=== PATIENT | female | born 1980 | race Caucasian/White ===

== ENCOUNTER 2016-02-18 13:15 | Emergency (ER) | payer OTHER ==
[2016-02-18 13:25] VITALS: BP 157/95; PULSE 87; TEMP 98.3; BMI 41.8
[2016-02-18] MEDS ORDERED: ALBUTEROL SO4 2.5/IPRATROPIUM 0.5 INH SOL 3 ML VIAL.NEB. NEB ONE ×2 (15:36→15:43)
--- NOTE | 2016-02-18 15:40 | PDOC ---
History of Present Illness - General Chief Complaint: Ear Problem Stated Complaint: LT EAR PAIN, COUGHING History Source: Patient Exam Limitations: No Limitations - History of Present Illness Initial Comments: 02/18/16 15:37 35 yr female no past medical history with cough nasal congestion, left ear pain for 4 days. no fever no sore throat, no abd pain or rash Severity: mild Associated Symptoms: reports: cough Past History - Past Medical History Allergies/Adverse Reactions: Allergies Allergy/AdvReac Type Severity Reaction Status Date / Time No Known Allergies Allergy Verified 02/18/16 13:25 Home Medications: Ambulatory Orders Albuterol Sulfate Inhaler - [Ventolin HFA Inhaler -] 2 inh PO Q4H #1 inh Prednisone [Deltasone] 40 mg PO DAILY #10 tablet 08/11/15 Albuterol Sulfate Inhaler - [Ventolin HFA Inhaler -] 1 - 2 inh PO Q4H #1 inhaler 02/18/16 Fluticasone Prop 0.05% Nasal [Flonase -] 1 - 2 spray NS DAILY #1 spray.pump 04/04 Other medical history: none relevant - Psycho/Social/Smoking Cessation Hx Suicidal Ideation: No Smoking History: Current every day smoker Number of Cigarettes Smoked Daily: 7 Information on smoking cessation initiated: No Review of Systems - Review of Systems Able to Perform ROS?: Yes Is the patient limited German proficient: No Constitutional: Yes: See HPI HEENTM: Yes: See HPI Respiratory: Yes: See HPI Cardiac (ROS): No: See HPI ABD/GI: No: See HPI *Physical Exam - Vital Signs Last Vital Signs Temp Pulse Resp BP Pulse Ox 98.3 F 87 18 157/95 98 02/18/16 13:22 02/18/16 13:22 02/18/16 13:22 02/18/16 13:22 02/18/16 13:22 - Physical Exam General Appearance: Yes: Nourished, Appropriately Dressed HEENT: positive: EOMI, ZENON, Other (narrowing of canal left ear ). negative: Pharyngeal Erythema (post nasal drip ) Neck: positive: Supple. negative: Tender Respiratory/Chest: positive: Rhonchi (scattered). negative: Chest Tender Cardiovascular: positive: Regular Rhythm, Regular Rate Gastrointestinal/Abdominal: positive: Normal Bowel Sounds, Soft Extremity: positive: Normal Capillary Refill, Normal Inspection, Normal Range of Motion Integumentary: positive: Normal Color, Dry, Warm Neurologic: positive: Fully Oriented, Alert, Normal Mood/Affect, Normal Response , Motor Strength /5 Medical Decision Making - Medical Decision Making 02/18/16 15:38 cc: cough, nasal congestion, left ear pain will give duoneb x1 for rhonchi pt is a smoker, will dc with inhaler, supportive care at home follow with ENT if symptoms worsen 02/18/16 15:48 02/18/16 15:52 *DC/Admit/Observation/Transfer Diagnosis at time of Disposition: Rhinosinusitis, Cough - Discharge Dispostion Disposition: HOME - Prescriptions Prescriptions: Fluticasone Prop 0.05% Nasal [Flonase -] 1 - 2 spray NS DAILY #1 spray.pump Albuterol Sulfate Inhaler - [Ventolin HFA Inhaler -] 1 - 2 inh PO Q4H #1 inhaler - Referrals Referrals: Annia Cordon [Primary Care Provider] - Miguel Westfall MD [Staff Physician] - - Patient Instructions Additional Instructions: use flonase nasal spray as directed for congestion, sinus pressure and cough use your inhaler as directed drink pleanty of fluids to stay well hydrated follow with your doctor or with ENT if symptoms continue return to ER for any worsening symptoms
== END 2016-02-18 15:56 | disposition home or self-care (01) ==
LOC: JERFT 13:15
PROC: 3E0F7GC Introduction of Other Therapeutic Substance into Respiratory Tract, Via Natural or Artificial Opening (ICD-10-PCS; principal; 2016-02-18)
DX: J01.80 Other acute sinusitis (principal)
CPT/HCPCS: 94640; 99281-25

== ENCOUNTER 2016-04-06 08:36 | Emergency (ER) | payer OTHER ==
[2016-04-06 08:42] VITALS: TEMP 97.8; BMI 41.1
--- NOTE | 2016-04-06 09:13 | PDOC ---
History of Present Illness - General History Source: Patient Exam Limitations: No Limitations - History of Present Illness Initial Comments: 04/06/16 09:31 The patient is a 35 year old female with no past medical history who presents to the ED with chest pain. Patient reports that the pain is localized to the left upper chest and is pressure like in nature and is reproducible. Patient notes that she was woken up from her sleep at 4 am due to the pain. She reports eating steak, rice and broccoli at 10 pm last night. She denies any acid taste in her mouth or heartburn sensation. She notes that her LMP was last week. She denies fever, chills, nausea, vomiting, diarrhea, constipation, headache, dizziness, SOB. She denies dysuria, frequency, hesitancy or hematuria. She denies any strenuous activity. She denies any recent travel. Allergies: none FMH: diabetes <Shanel Preciado - Last Filed: 04/06/16 11:18> <Ahmet Bishop - Last Filed: 04/06/16 11:34> - General Chief Complaint: Chest Pain Stated Complaint: CHEST PAIN Time Seen by Provider: 04/06/16 09:12 Past History <Shanel Preciado - Last Filed: 04/06/16 11:18> - Past Medical History Other medical history: DENIES - Psycho/Social/Smoking Cessation Hx Suicidal Ideation: No Smoking History: Current every day smoker Number of Cigarettes Smoked Daily: 7 Information on smoking cessation initiated: No <Ahmet Bishop - Last Filed: 04/06/16 11:34> - Past Medical History Allergies/Adverse Reactions: Allergies Allergy/AdvReac Type Severity Reaction Status Date / Time No Known Allergies Allergy Verified 04/06/16 08:42 Home Medications: Ambulatory Orders Ibuprofen 800 mg PO TID #30 tablet 04/06/16 Ondansetron [Ondansetron Odt] 8 mg PO TID #30 tab.rapdis 04/06/16 Review of Systems - Review of Systems Able to Perform ROS?: Yes Comments:: 04/06/16 09:31 GENERAL/CONSTITUTIONAL: No fever or chills. No weakness. HEAD, EYES, EARS, NOSE AND THROAT: No change in vision. No ear pain or discharge. No sore throat. CARDIOVASCULAR: +chest pain. No shortness of breath. RESPIRATORY: No cough, wheezing, or hemoptysis. GASTROINTESTINAL: No nausea, vomiting, diarrhea or constipation. GENITOURINARY: No dysuria, frequency, or change in urination. MUSCULOSKELETAL: No joint or muscle swelling or pain. No neck or back pain. SKIN: No rash NEUROLOGIC: No headache, vertigo, loss of consciousness, or change in strength/ sensation. ENDOCRINE: No increased thirst. No abnormal weight change. HEMATOLOGIC/LYMPHATIC: No anemia, easy bleeding, or history of blood clots. ALLERGIC/IMMUNOLOGIC: No hives or skin allergy. <Shanel Preciado - Last Filed: 04/06/16 11:18> *Physical Exam - Vital Signs Last Vital Signs Temp Pulse Resp BP Pulse Ox 97.8 F 67 18 136/98 98 04/06/16 08:39 04/06/16 08:39 04/06/16 08:39 04/06/16 08:39 04/06/16 08:39 - Physical Exam Comments: 04/06/16 09:32 GENERAL: Awake, alert, and fully oriented, in no acute distress HEAD: No signs of trauma EYES: PERRLA, EOMI, sclera anicteric, conjunctiva clear ENT: Auricles normal inspection, hearing grossly normal, nares patent, oropharynx clear without exudates. Moist mucosa NECK: Normal ROM, supple, no lymphadenopathy, JVD, or masses LUNGS: Breath sounds equal, clear to auscultation bilaterally. No wheezes, and no crackles HEART: Regular rate and rhythm, normal S1 and S2, no murmurs, rubs or gallops CHEST: +Left upper intercostal 3rd rib tenderness. ABDOMEN: +Obese. Soft, nontender, normoactive bowel sounds. No guarding, no rebound. No masses EXTREMITIES: Normal range of motion, no edema. No clubbing or cyanosis. No cords, erythema, or tenderness NEUROLOGICAL: Cranial nerves II through XII grossly intact. Normal speech, normal gait SKIN: Warm, Dry, normal turgor, no rashes or lesions noted. <Shanel Preciado - Last Filed: 04/06/16 11:18> - Vital Signs Last Vital Signs Temp Pulse Resp BP Pulse Ox 97.8 F 67 18 136/98 98 04/06/16 08:39 04/06/16 08:39 04/06/16 08:39 04/06/16 08:39 04/06/16 08:39 <Ahmet Bishop - Last Filed: 04/06/16 11:34> Heart Score/ECG Review #1 04/06/16 09:[address] Bishop Impression: Normal sinus rhythm Normal rate Normal axis Normal EKG Vent rate 65 bpm <Shanel Preciado - Last Filed: 04/06/16 11:18> ED Treatment Course - LABORATORY CBC & Chemistry Diagram: 04/06/16 09:27 04/06/16 09:27 <Shanel Preciado - Last Filed: 04/06/16 11:18> - LABORATORY CBC & Chemistry Diagram: 04/06/16 09:27 04/06/16 09:27 <Ahmet Bishop - Last Filed: 04/06/16 11:34> Medical Decision Making - Medical Decision Making 04/06/16 09:32 35 year old female with no past medical history who presents to the ED with chest pain since 4 am. Will order CXR, labs and UA. Will provide supportive care in the meantime and reassess when results are back. 04/06/16 10:54 Patient notes that Toradol alleviated her pain and she "feels much better". D- dimer is negative. Awaiting on results of CXR. <Shanel Preciado - Last Filed: 04/06/16 11:18> - Medical Decision Making 04/06/16 11:24 Pain is definitely reproducible and, toradol relieved her pain. Labs all negative, Ekg and Cxr both normal. Will DC home and have follow up with pmd. <Ahmet Bishop - Last Filed: 04/06/16 11:34> *DC/Admit/Observation/Transfer - Attestations Scribe Attestion: 04/06/16 09:35 Documentation prepared by KINGA Bowie, acting as medical consultant for Ahmet Bishop MD/. <Shanel Preciado - Last Filed: 04/06/16 11:18> - Discharge Dispostion Admit: No - Attestations Physician Attestion: 04/06/16 09:13 I, Dr. Ahmet Bishop, attest that this document has been prepared under my direction and personally reviewed by me in its entirety. I further attest, that it accurately reflects all work, treatment, procedures and medical decision -making performed by me. <Ahmet Bishop - Last Filed: 04/06/16 11:34> Diagnosis at time of Disposition: Costochondral chest pain - Discharge Dispostion Disposition: HOME Condition at time of disposition: Good - Prescriptions Prescriptions: Ibuprofen 800 mg PO TID #30 tablet Ondansetron [Ondansetron Odt] 8 mg PO TID #30 tab.rapdis - Referrals Referrals: Annia Cordon [Primary Care Provider] - - Patient Instructions Printed Discharge Instructions: DI for Costochondritis Additional Instructions: Soila- All of your tests were normal and the toradol helped your pain. I wrote prescriptions for motrin and zofran for you to have at home. Follow up with your regular doctor later this week. Return to us if any problems at all. Be Well- Dr. Ahmet Bishop
[2016-04-06] MEDS ORDERED: KETOROLAC TROMETHAMINE 30 MG/1 ML VIAL IVPUSH ONE (09:22)
[2016-04-06] MEDS ORDERED: ONDANSETRON 4 MG/2 ML VIAL IVPUSH ONE (09:22)
[2016-04-06] MEDS ORDERED: ONDANSETRON 4 MG/2 ML VIAL ONE (09:28)
[2016-04-06] MEDS ORDERED: KETOROLAC TROMETHAMINE 30 MG/1 ML VIAL ONE (09:28)
[2016-04-06 09:38] LABS: BASOPHIL 0.9 % (0-2.0); EOSINOPHIL 2.4 % (0-4.5); MCH 29.9 pg (25.7-33.7); MCHC 33.9 g/dl (32.0-36.0); MEAN CELL VOLUME 88.2 fl (80-96); MEAN PLT VOLUME 7.7 fl (7.5-11.1); NEUTROPHILS 67.9 % (42.8-82.8); PLATELET COUNT 252 K/MM3 (134-434); RDW 14.3 % (11.6-15.6); WHITE BLOOD COUNT 8.6 K/mm3 (4.0-10.0)
[2016-04-06 09:54] LABS: INR 1.05 (0.82-1.09)
[2016-04-06 09:55] LABS: ALBUMIN 3.5 g/dl (3.4-5.0); ANION GAP 9 (8-16); BILIRUBIN,TOTAL 0.2 mg/dL (0.2-1.0); CALCIUM 8.1 mg/dL (8.5-10.1); CO2 25 mmol/L (21-32); GLUCOSE,RANDOM 111 mg/dL (74-106); SGOT/AST 12 U/L (15-37); SGPT/ALT 30 U/L (12-78); TOT PROT 6.5 g/dl (6.4-8.2)
[2016-04-06 09:57] LABS: ALK PHOS 73 U/L (45-117); TROPONIN I < 0.02 ng/ml (0.00-0.05)
[2016-04-06 10:23] LABS: D-DIMER < 200 ng/ml (<200-235)
[2016-04-06 10:44] VITALS: BP 115/64; PULSE 62
--- NOTE | 2016-04-07 00:40 | EKG ---
Test Reason : Blood Pressure : / mmHG Vent. Rate : 065 BPM Atrial Rate : 065 BPM P-R Int : 136 ms QRS Dur : 108 ms QT Int : 436 ms P-R-T Axes : 017 -10 038 degrees QTc Int : 453 ms NORMAL SINUS RHYTHM WITH SINUS ARRHYTHMIA NORMAL ECG NO PREVIOUS ECGS AVAILABLE Confirmed by JOHN PAUL ALCANTARA MD ([id number]) on 04/07/2016 12:40:02 AM Referred By: Confirmed By:JOHN PAUL ALCANTARA MD
== END 2016-04-06 11:47 | disposition home or self-care (01) ==
LOC: JER 08:36
PROC: 3E0333Z Introduction of Anti-inflammatory into Peripheral Vein, Percutaneous Approach (ICD-10-PCS; principal; 2016-04-06)
PROC: 3E033GC Introduction of Other Therapeutic Substance into Peripheral Vein, Percutaneous Approach (ICD-10-PCS; 2016-04-06)
DX: M94.0 Chondrocostal junction syndrome [Tietze] (principal)
CPT/HCPCS: 36415; 71020-TC; 80053; 82550; 84484; 84703; 85025; 85379; 85610; 93005; 93010; 96374; 96375; 99285-25

== ENCOUNTER → 2016-07-02 | Emergency (ER) | payer OTHER ==
[~2016-07-02] MED LIST: KETOROLAC TROMETHAMINE 30 MG/1 ML VIAL IVPUSH ONE; KETOROLAC TROMETHAMINE 30 MG/1 ML VIAL ONE; METOCLOPRAMIDE HCL INJECTION 10 MG/2 ML VIAL IVPUSH ONE; METOCLOPRAMIDE HCL INJECTION 10 MG/2 ML VIAL ONE; SODIUM CHLORIDE 0.9% 1000 ML INFUS.BAG IV ONE
[2016-07-03 00:29] VITALS: BMI 38.7
--- NOTE | 2016-07-03 04:00 | PDOC ---
History of Present Illness - General Chief Complaint: Headache Stated Complaint: HEADACHE Time Seen by Provider: 07/03/16 01:26 - History of Present Illness Initial Comments: 07/03/16 03:53 CHIEF COMPLAINT: headache HISTORY OF PRESENT ILLNESS: 35 yo F with hx of migraines presents to ED with headache x 5 days. Patient reports that she was given a medicine by her doctor for her headaches but is unsure what medication it was and it did not help today. She describes the pain as a "pressure" and denies any photophobia or nausea/vomiting. She denies any change in vision. No recent travel or sick contacts. PAST MEDICAL HISTORY: Denies past medical history FAMILY HISTORY: Denies SOCIAL HISTORY: Denies tobacco, alcohol, illicit drug use. SURGICAL HISTORY: Denies ALLERGIES: No known drug allergies REVIEW OF SYSTEMS General/Constitutional: Denies fever or chills. HEENT: Denies change in vision. Denies ear pain or discharge. Denies sore throat. Cardiovascular: Denies chest pain or shortness of breath. Respiratory: Denies cough, wheezing, or hemoptysis. Gastrointestinal: Denies nausea, vomiting, diarrhea or constipation. Denies rectal bleeding. Genitourinary: Denies dysuria, frequency, or change in urination. Musculoskeletal: Denies joint or muscle swelling or pain. Denies neck or back pain. Skin and breasts: Denies rash or easy bruising. Neurologic: Headache x 5 days. Denies vertigo, loss of consciousness, or loss of sensation. PHYSICAL EXAM General Appearance: Well-appearing, appropriately dressed. No apparent distress. HEENT: EOMI, PERRLA, normal ENT inspection, normal voice, TMs normal, pharynx normal. No conjunctival pallor. No photophobia, scleral icterus. Neck: Supple. Trachea midline. No tenderness, rigidity, carotid bruit, stridor , lymphadenopathy, or thyromegaly. Respiratory/Chest: Lungs CTAB. Cardiovascular: RRR. S1, S2. Gastrointestinal/Abdominal: Normal bowel sounds. Abdomen soft, non-distended. No tenderness or rebound tenderness. No organomegaly, pulsatile mass, guarding , hernia, hepatomegaly, splenomegaly. Musculoskeletal/Extremities: Normal inspection. FROM of all extremities, normal capillary refill. Pelvis Stable. No CVA tenderness. No tenderness to extremities, pedal edema, swelling, erythema or deformity. Integumentary: Appropriate color, dry, warm. No cyanosis, erythema, jaundice or rash Neurologic: associate doctor II-XII intact. Fully oriented, alert. Appropriate mood/affect. Motor strength 5/5. No appreciable EOM palsy, facial droop or sensory deficit. Past History - Past Medical History Allergies/Adverse Reactions: Allergies Allergy/AdvReac Type Severity Reaction Status Date / Time No Known Allergies Allergy Verified 04/06/16 08:42 Home Medications: Ambulatory Orders Ibuprofen 800 mg PO TID #30 tablet 04/06/16 Ondansetron [Ondansetron Odt] 8 mg PO TID #30 tab.rapdis 04/06/16 Acetaminophen/Caffeine/Butalb [Fioricet -] 1 tab PO Q6H PRN #12 tablet MDD 4 - Psycho/Social/Smoking Cessation Hx Suicidal Ideation: No Smoking History: Never smoked Have you smoked in the past 12 months: No Number of Cigarettes Smoked Daily: 7 Information on smoking cessation initiated: No Hx Alcohol Use: No Drug/Substance Use Hx: No *Physical Exam - Vital Signs Last Vital Signs Temp Pulse Resp BP Pulse Ox 97.5 F L 88 14 116/73 98 07/03/16 00:27 07/03/16 00:27 07/03/16 00:27 07/03/16 00:27 07/03/16 00:27 ED Treatment Course - ADDITIONAL ORDERS Additional order review: Laboratory Results 07/03/16 01:53 Urine HCG, Qual Negative - Medications Given in the ED: ED Medications Discontinued Medications Generic Name Dose Route Start Last Admin Trade Name Freq PRN Reason Stop Dose Admin Diphenhydramine HCl 25 mg 07/03/16 01:51 07/03/16 02:17 Benadryl Injection - IVPUSH 07/03/16 01:52 25 mg ONCE ONE Administration Ketorolac Tromethamine 30 mg 07/03/16 01:51 07/03/16 02:46 Toradol Injection - IVPUSH 07/03/16 01:52 30 mg ONCE ONE Administration Metoclopramide HCl 10 mg 07/03/16 01:51 07/03/16 02:17 Reglan Injection - IVPUSH 07/03/16 01:52 10 mg ONCE ONE Administration Sodium Chloride 1,000 ml 07/03/16 01:51 07/03/16 02:17 Normal Saline - IV 07/03/16 01:52 1,000 ml ONCE ONE Administration Medical Decision Making - Medical Decision Making 07/03/16 03:56 35 yo F with hx of migraines presents to ED with headache x 5 days. Exam unremarkable, patient neurologically intact. -IVF, Toradol, Reglan, Benadryl. Patient reassessed; reports she is feeling much better at this time and states she is ready to go home. Fioricet rx sent to pharm. Advised patient to take medication as prescribed f/u with neurology this week. Patient verbalized understanding and agrees to plan. *DC/Admit/Observation/Transfer Diagnosis at time of Disposition: Headache Qualifiers: Headache type: tension-type Headache chronicity pattern: acute headache Intractability: not intractable Qualified Code(s): G44.209 - Tension-type headache, unspecified, not intractable - Discharge Dispostion Disposition: HOME Condition at time of disposition: Improved Admit: No - Prescriptions Prescriptions: Acetaminophen/Caffeine/Butalb [Fioricet -] 1 tab PO Q6H PRN #12 tablet MDD 4 PRN Reason: Headache - Referrals Referrals: Annia Cordon [Primary Care Provider] - Cesar Son MD [Staff Physician] - - Patient Instructions Printed Discharge Instructions: DI for Headache Additional Instructions: Please take medication as prescribed and follow up with neurology within the next 2-3 days for further evaluation of your headaches. If you experience any sudden, "thunderclap" headache, change in vision, difficulty speaking, swallowing, or walking, or any new or worsening symptoms, please return to the ER.
[2016-07-03 04:32] VITALS: BP 118/77; PULSE 82; TEMP 97.9
== END | disposition home or self-care (01) ==
LOC: JER 23:49
PROC: 3E0333Z Introduction of Anti-inflammatory into Peripheral Vein, Percutaneous Approach (ICD-10-PCS; principal; 2016-07-02)
PROC: 3E033GC Introduction of Other Therapeutic Substance into Peripheral Vein, Percutaneous Approach (ICD-10-PCS; 2016-07-02)
DX: G44.209 Tension-type headache, unspecified, not intractable (principal); Z87.898 Personal history of other specified conditions
CPT/HCPCS: 84703; 99282-25

== ENCOUNTER 2016-08-26 20:52 | Emergency (ER) | payer OTHER ==
[2016-08-26 21:27] VITALS: BP 134/68; PULSE 76; TEMP 97.7; BMI 39.9
[2016-08-26 21:54] LABS: URINE APPEARANCE CLOUDY; URINE BILIRUBIN NEGATIVE (NEGATIVE); URINE COLOR YELLOW; URINE GLUCOSE (UA) 3+ (NEGATIVE); URINE KETONE NEGATIVE (NEGATIVE); URINE NITRITE NEGATIVE (NEGATIVE); URINE UROBILINOGEN NEGATIVE E.U./dl (0.2-1.0)
[2016-08-26 21:55] LABS: URINE BLOOD 2+ (NEGATIVE); URINE LEUK ESTERASE 3+ (NEGATIVE); URINE PROTEIN 1+ (NEGATIVE)
[2016-08-26 21:59] LABS: URINE BACTERIA RARE /hpf (NONE SEEN); URINE MUCUS RARE; URINE RBC 131 /hpf (0-3); URINE WBC 255 /hpf (3-5)
[2016-08-26] MEDS ORDERED: NITROFURANTOIN MACROCRYSTAL 50 MG CAPSULE (FP) ONE (22:15)
[2016-08-26] MEDS ORDERED: NITROFURANTOIN MACROCRYSTAL 50 MG CAPSULE (FP) PO SCH (22:15)
--- NOTE | 2016-08-26 22:18 | PDOC ---
History of Present Illness - General Chief Complaint: Urinary Problem Stated Complaint: POSSIBLE UTI Time Seen by Provider: 08/26/16 22:04 History Source: Patient Exam Limitations: No Limitations - History of Present Illness Travel History: No Initial Comments: 08/26/16 22:16 35-year-old female with urinary frequency suprapubic pressure, dysuria for the past few days without fever, chills, radiation of pain, back pain, vaginal discharge. Patient also denies irregular menses. Timing/Duration: reports: intermittent Quality: reports: cramping, sharpness Abdominal Pain Onset Location: reports: suprapubic Pain Radiation: reports: no radiation Aggravating Factors: improves with: Voiding Alleviating Factors: improves with: None Past History - Past Medical History Allergies/Adverse Reactions: Allergies Allergy/AdvReac Type Severity Reaction Status Date / Time No Known Allergies Allergy Verified 04/06/16 08:42 Home Medications: Ambulatory Orders Ibuprofen 800 mg PO TID #30 tablet 04/06/16 Ondansetron [Ondansetron Odt] 8 mg PO TID #30 tab.rapdis 04/06/16 Acetaminophen/Caffeine/Butalb [Fioricet -] 1 tab PO Q6H PRN #12 tablet MDD 4 Nitrofurantoin Monohyd/M-Cryst [Macrobid -] 100 mg PO BID #13 capsule 08/26/16 - Psycho/Social/Smoking Cessation Hx Anxiety: No Suicidal Ideation: No Smoking History: Never smoked Have you smoked in the past 12 months: No Number of Cigarettes Smoked Daily: 7 Information on smoking cessation initiated: No Hx Alcohol Use: No Drug/Substance Use Hx: No Substance Use Type: None Patient Lives Alone: No Review of Systems - Review of Systems Able to Perform ROS?: Yes Constitutional: No: Symptoms Reported HEENTM: No: Symptoms Reported ABD/GI: Yes: Nausea, Abdominal cramping : Yes: Symptoms Reported, Burning, Dysuria, Frequency. No: Flank Pain, Hematuria Musculoskeletal: No: Symptoms Reported Integumentary: No: Symptoms Reported Neurological: No: Symptoms reported *Physical Exam - Vital Signs Last Vital Signs Temp Pulse Resp BP Pulse Ox 97.7 F 76 17 134/68 100 08/26/16 21:22 08/26/16 21:22 08/26/16 21:22 08/26/16 21:22 08/26/16 21:22 - Physical Exam General Appearance: Yes: Nourished, Appropriately Dressed. No: Apparent Distress Gastrointestinal/Abdominal: positive: Soft. negative: Tenderness Musculoskeletal: negative: CVA Tenderness Integumentary: positive: Normal Color, Warm, Moist Neurologic: positive: Normal Mood/Affect, Motor Strength 5/5 (ambulatory) ED Treatment Course - ADDITIONAL ORDERS Additional order review: Laboratory Results 08/26/16 08/26/16 21:40 21:40 Urine Color Yellow Urine Appearance Cloudy Urine pH 6.0 Urine Protein 1+ H Urine Glucose (UA) 3+ H Urine Ketones Negative Urine Blood 2+ H Urine Nitrite Negative Urine Bilirubin Negative Urine Urobilinogen Negative Ur Leukocyte Esterase 3+ H Urine RBC 131 Urine WBC 255 Ur Epithelial Cells Many Urine Bacteria Rare Urine Mucus Rare Urine HCG, Qual Negative Medical Decision Making - Medical Decision Making 08/26/16 22:07 Patient with urinary complaints consisted of UTI. Patient for urinalysis urine and urine culture. 08/26/16 22:17 Laboratory Tests 08/26/16 08/26/16 21:40 21:40 Ur Leukocyte Esterase 3+ H Urine WBC 255 Urine HCG, Qual Negative Patient with no previous urine culture file. Patient to be started on Macrobid. Patient given first dose here in the ER. Patient discharged home with the same. 08/26/16 22:18 *DC/Admit/Observation/Transfer Diagnosis at time of Disposition: UTI (urinary tract infection) Qualifiers: Urinary tract infection type: acute cystitis Hematuria presence: with hematuria Qualified Code(s): N30.01 - Acute cystitis with hematuria - Discharge Dispostion Disposition: HOME Condition at time of disposition: Good - Prescriptions Prescriptions: Nitrofurantoin Monohyd/M-Cryst [Macrobid -] 100 mg PO BID #13 capsule - Referrals Referrals: Annia Cordon [Primary Care Provider] - - Patient Instructions Printed Discharge Instructions: DI for Urinary Tract Infection (UTI) Additional Instructions: Please take medication as prescribed starting tomorrow since your given your first dose here in the ER. Please drink plenty of fluid. Please clean from the back. Please wear cotton underwear. Return to ED if symptoms worsen.
== END 2016-08-26 22:21 | disposition home or self-care (01) ==
LOC: JERFT 20:52
DX: N30.01 Acute cystitis with hematuria (principal)
CPT/HCPCS: 81003; 81015; 84703; 87086; 99281-25

== ENCOUNTER 2017-02-27 01:53 | Emergency (ER) | payer OTHER ==
[2017-02-27 02:26] VITALS: BP 150/79; PULSE 84; TEMP 97.7; BMI 34.4
--- NOTE | 2017-02-27 03:19 | PDOC ---
History of Present Illness - General History Source: Patient Exam Limitations: No Limitations - History of Present Illness Initial Comments: 02/27/17 03:26 The patient is a 36 year old female with a significant PMH of migraines and depression who presents to the emergency department with 4 months of chronic neck and back pain which significantly worsened yesterday. She reports her neck pain is aggravated by movement. The patient reports receiving trigger point injections and Tramadol by her neurologist within the past month to minimal relief. She reports that her neck and back pain were the worst its ever been yesterday, prompting her visit. She denies any recent falls or injuries. The patient denies chest pain, shortness of breath, headache and dizziness. Denies fever, chills, nausea, vomit, diarrhea and constipation. Denies dysuria, frequency, urgency and hematuria. Allergies: NKA Past surgical history: None reported. Social history: No reported cigarette, alcohol, or drug use. PCP: Dr. Cordon Neurologist: Dr. Son <Tanmay Goins - Last Filed: 02/27/17 03:32> - General History Source: Patient <MorroKenny rodriges - Last Filed: 02/27/17 05:59> - General Chief Complaint: Pain Stated Complaint: PAIN,NECK/BACK Time Seen by Provider: 02/27/17 03:19 Past History <Tanmay Goins - Last Filed: 02/27/17 03:32> - Suicide/Smoking/Psychosocial Hx Smoking History: Never smoked Have you smoked in the past 12 months: No Number of Cigarettes Smoked Daily: 7 Information on smoking cessation initiated: No Hx Alcohol Use: No Drug/Substance Use Hx: No Substance Use Type: None <Kenny Casiano - Last Filed: 02/27/17 05:59> - Past Medical History Allergies/Adverse Reactions: Allergies Allergy/AdvReac Type Severity Reaction Status Date / Time No Known Allergies Allergy Verified 02/27/17 02:07 Home Medications: Ambulatory Orders Ibuprofen 800 mg PO TID #30 tablet 04/06/16 Ondansetron [Ondansetron Odt] 8 mg PO TID #30 tab.rapdis 04/06/16 Acetaminophen/Caffeine/Butalb [Fioricet -] 1 tab PO Q6H PRN #12 tablet MDD 4 05/ 18/17 Ibuprofen 800 mg PO TID #30 tablet 02/27/17 Methocarbamol [Robaxin -] 500 mg PO TID #30 tablet 02/27/17 Tramadol HCl [Ultram -] 50 mg PO Q8H #30 tablet MDD 200mg 02/27/17 Review of Systems - Review of Systems Able to Perform ROS?: Yes Comments:: 02/27/17 03:26 CONSTITUTIONAL: Absent: fever, chills, diaphoresis, generalized weakness, malaise, loss of appetite HEENT: Absent: rhinorrhea, nasal congestion, throat pain, throat swelling, difficulty swallowing, mouth swelling, ear pain, eye pain, visual Changes CARDIOVASCULAR: Absent: chest pain, syncope, palpitations, irregular heart rate, lightheadedness , peripheral edema RESPIRATORY: Absent: cough, shortness of breath, dyspnea with exertion, orthopnea, wheezing, stridor, hemoptysis GASTROINTESTINAL: Absent: abdominal pain, abdominal distension, nausea, vomiting, diarrhea, constipation, melena, hematochezia GENITOURINARY: Absent: dysuria, frequency, urgency, hesitancy, hematuria, flank pain, genital pain MUSCULOSKELETAL: (+) Neck pain. (+) Back pain. Absent: arthralgia, joint swelling SKIN: Absent: rash, itching, pallor HEMATOLOGIC/IMMUNOLOGIC: Absent: easy bleeding, easy bruising, lymphadenopathy, frequent infections ENDOCRINE: Absent: unexplained weight gain, unexplained weight loss, heat intolerance, cold intolerance NEUROLOGIC: Absent: headache, focal weakness or paresthesias, dizziness, unsteady gait, seizure, mental status changes, bladder or bowel incontinence PSYCHIATRIC: Absent: anxiety, depression, suicidal or homicidal ideation, hallucinations. <Tanmay Goins - Last Filed: 02/27/17 03:32> *Physical Exam - Vital Signs Last Vital Signs Temp Pulse Resp BP Pulse Ox 97.7 F 84 20 150/79 99 02/27/17 02:07 02/27/17 02:07 02/27/17 02:07 02/27/17 02:07 02/27/17 02:07 - Physical Exam Comments: 02/27/17 03:32 GENERAL: Well developed, well nourished. Awake and alert. No acute distress. HEENT: Normocephalic, atraumatic. PERRLA, EOMI. No conjunctival pallor. Sclera are non- icteric. Moist mucous membranes. Oropharynx is clear. NECK: (+) Pain reproducible with flexion of neck. (+) Mild diffuse tenderness of cervical and thoracic spine. Supple. Full ROM. No JVD. Carotid pulses 2+ and symmetric, without bruits. No thyromegaly. No lymphadenopathy. CARDIOVASCULAR: Regular rate and rhythm. No murmurs, rubs, or gallops. Distal pulses are 2+ and symmetric. PULMONARY: No evidence of respiratory distress. Lungs clear to auscultation bilaterally. No wheezing, rales or rhonchi. ABDOMINAL: Soft. Non-tender. Non-distended. No rebound or guarding. No organomegaly. Normoactive bowel sounds. MUSCULOSKELETAL: (+) Tenderness to palpation diffusely along upper and lower back & posterior neck Normal range of motion at all joints. No bony deformities or tenderness. No CVA tenderness. EXTREMITIES: No cyanosis. No clubbing. No edema. No calf tenderness. SKIN: Warm and dry. Normal capillary refill. No rashes. No jaundice. NEUROLOGICAL: Alert, awake, appropriate. Cranial nerves 2-12 intact. No deficits to light touch and temperature in face, upper extremities and lower extremities. No motor deficits in the in face, upper extremities and lower extremities. Normoreflexic in the upper and lower extremities. Normal speech. Toes are down- going bilaterally. Gait is normal without ataxia. PSYCHIATRIC: Cooperative. Good eye contact. Appropriate mood and affect. <Tanmay Goins - Last Filed: 02/27/17 03:32> - Vital Signs Last Vital Signs Temp Pulse Resp BP Pulse Ox 97.7 F 84 20 150/79 99 02/27/17 02:07 02/27/17 02:07 02/27/17 02:07 02/27/17 02:07 02/27/17 02:07 <Kenny Casiano - Last Filed: 02/27/17 05:59> Medical Decision Making - Medical Decision Making 02/27/17 05:58 Dr. Casiano: The scribe's documentation has been prepared under my direction and personally reviewed by me in its entirery. I confirm that the note above accurately reflects all work, treatment, procedures, and medical decision making performed by me. <Kenny Casiano - Last Filed: 02/27/17 05:59> *DC/Admit/Observation/Transfer - Attestations Scribe Attestion: 02/27/17 03:28 Documentation prepared by Tanmay Goins, acting as senior medical technologist for Kenny Casiano DO. <Tanmay Goins - Last Filed: 02/27/17 03:32> - Discharge Dispostion Admit: No <Kenny Casiano - Last Filed: 02/27/17 05:59> Diagnosis at time of Disposition: Muscle spasm - Discharge Dispostion Disposition: HOME Condition at time of disposition: Stable - Prescriptions Prescriptions: Ibuprofen 800 mg PO TID #30 tablet Methocarbamol [Robaxin -] 500 mg PO TID #30 tablet Tramadol HCl [Ultram -] 50 mg PO Q8H #30 tablet MDD 200mg - Referrals Referrals: Annia Cordon [Primary Care Provider] - Cesar Son MD [Staff Physician] - Phani Guajardo MD [Staff Physician] - - Patient Instructions Printed Discharge Instructions: DI for Muscle Strain, DI for Cervical Muscle Strain, DI for Low Back Pain - Post Discharge Activity
[2017-02-27] MEDS ORDERED: IBUPROFEN 400 MG TABLET (FP) PO ONE (03:30)
[2017-02-27] MEDS ORDERED: METHOCARBAMOL 500 MG TABLET PO ONE (03:30)
[2017-02-27] MEDS ORDERED: traMADol HCL 50 MG TABLET PO ONE (04:59)
== END 2017-02-27 06:02 | disposition home or self-care (01) ==
LOC: JER 01:53
DX: M62.830 Muscle spasm of back (principal)
CPT/HCPCS: 70450-TC; 72125-TC; 72131-TC; 84703; 99282-25

== ENCOUNTER 2018-01-10 02:05 | Emergency (ER) | payer OTHER ==
--- NOTE | 2018-01-10 02:17 | PDOC ---
History of Present Illness <DavisKendra - Last Filed: 01/10/18 04:42> - General History Source: Patient Exam Limitations: No Limitations - History of Present Illness Initial Comments: 01/10/18 03:44 Best Contact: PCP: Dr. Dmitry escalante Pmhx: Fibromyalgia, depression Pshx: 2011: Bilateral tubal ligation Allergies: NO KNOWN DRUG ALLERGIES FH: Denies Social Hx: Cigarettes/ 5-7 cigarettes a day for the past one year Alcohol/ social Drugs/denies LMP: 01/06/2018 37-year-old female presents to the ER complaining of pelvic/right lower quadrant abdominal discomfort 2-3 days. Pain is described as 6/10 dull nonradiating intermittent discomfort without fever, chills, nausea/vomiting, headache, dizziness, lightheadedness or facial pains, neck pain/stiffness, back pains, chest pain, shortness of breath, flank pains, urinary symptoms: Frequency /urgency/hesitancy, burning upon urination or hematuria. There are no alleviating or exacerbating factors. Patient is unsure of similar symptoms. <Jany Cisneros - Last Filed: 01/10/18 06:20> - General Stated Complaint: ABD PAIN Time Seen by Provider: 01/10/18 02:08 Past History <DavisKendra - Last Filed: 01/10/18 04:42> - Past Medical History COPD: No - Immunization History Immunization Up to Date: Yes - Suicide/Smoking/Psychosocial Hx Smoking History: Never smoked Have you smoked in the past 12 months: No Number of Cigarettes Smoked Daily: 7 Hx Alcohol Use: No Drug/Substance Use Hx: No Substance Use Type: None <Jany Cisneros - Last Filed: 01/10/18 06:20> - Past Medical History Allergies/Adverse Reactions: Allergies Allergy/AdvReac Type Severity Reaction Status Date / Time No Known Allergies Allergy Verified 01/10/18 02:23 Home Medications: Ambulatory Orders Ibuprofen 800 mg PO TID #30 tablet 04/06/16 Methocarbamol [Robaxin -] 500 mg PO TID #30 tablet 02/27/17 traMADol HCL [Ultram -] 50 mg PO Q8H #30 tablet MDD 200mg 02/27/17 Fluoxetine HCl [Prozac] 20 mg PO AM 01/10/18 Magnesium 250 mg PO DAILY 01/10/18 Nortriptyline HCl [Pamelor] 75 mg PO HS 01/10/18 Topiramate [Topamax -] 200 mg PO BID 01/10/18 traZODone HCL [Trazodone HCl] 50 mg PO PRN PRN 01/10/18 Review of Systems - Review of Systems Able to Perform ROS?: Yes Comments:: 01/10/18 03:44 CONSTITUTIONAL: Absent: fever, chills, diaphoresis, generalized weakness, malaise, loss of appetite HEENT: Absent: rhinorrhea, nasal congestion, throat pain, throat swelling, difficulty swallowing, mouth swelling, ear pain, eye pain, visual Changes CARDIOVASCULAR: Absent: chest pain, loss of consciousness, palpitations, irregular heart rate, peripheral edema RESPIRATORY: Absent: cough, shortness of breath, dyspnea with exertion, orthopnea, wheezing, stridor, hemoptysis GASTROINTESTINAL: Absent: abdominal pain, abdominal distension, nausea, vomiting, diarrhea, constipation, melena, hematochezia GENITOURINARY: Absent: dysuria, frequency, urgency, hesitancy, hematuria, flank pain, genital pain MUSCULOSKELETAL: Absent: myalgia, arthralgia, joint swelling SKIN: Absent: rash, itching, pallor HEMATOLOGIC/IMMUNOLOGIC: Absent: easy bleeding, easy bruising, lymphadenopathy, frequent infections ENDOCRINE: Absent: unexplained weight gain, unexplained weight loss, heat intolerance, cold intolerance NEUROLOGIC: Absent: headache, focal weakness or paresthesias, dizziness, unsteady gait, seizure, mental status changes, bladder or bowel incontinence PSYCHIATRIC: Absent: anxiety, depression, suicidal or homicidal ideation, hallucinations. Is the patient limited Citizen [place] proficient: No <Jany Cisneros - Last Filed: 01/10/18 06:20> *Physical Exam - Vital Signs Last Vital Signs Temp Pulse Resp BP Pulse Ox 97.8 F 82 20 110/76 99 01/10/18 02:23 01/10/18 02:23 01/10/18 02:23 01/10/18 02:23 01/10/18 02:23 <Kendra Davis - Last Filed: 01/10/18 04:42> - Physical Exam Comments: 01/10/18 03:44 GENERAL: Well developed, well nourished. Awake and alert. No acute distress. HEENT: Normocephalic, atraumatic. PERRLA, EOMI. No conjunctival pallor. Sclera are non- icteric. Moist mucous membranes. Oropharynx is clear. NECK: Supple. Full ROM. No JVD. Carotid pulses 2+ and symmetric, without bruits. No thyromegaly. No lymphadenopathy. CARDIOVASCULAR: Regular rate and rhythm. No murmurs, rubs, or gallops. Distal pulses are 2+ and symmetric. PULMONARY: No evidence of respiratory distress. Lungs clear to auscultation bilaterally. No wheezing, rales or rhonchi. ABDOMINAL: Soft. Non-tender. Non-distended. No rebound or guarding. No organomegaly. Normoactive bowel sounds. MUSCULOSKELETAL Normal range of motion at all joints. No bony deformities or tenderness. No CVA tenderness. EXTREMITIES: No cyanosis. No clubbing. No edema. No calf tenderness. SKIN: Warm and dry. Normal capillary refill. No rashes. No jaundice. NEUROLOGICAL: Alert, awake, appropriate. Cranial nerves 2-12 intact. No deficits to light touch and temperature in face, upper extremities and lower extremities. No motor deficits in the in face, upper extremities and lower extremities. Normoreflexic in the upper and lower extremities. Normal speech. Toes are down- going bilaterally. Gait is normal without ataxia. PSYCHIATRIC: Cooperative. Good eye contact. Appropriate mood and affect. <Jany Cisneros - Last Filed: 01/10/18 06:20> ED Treatment Course - LABORATORY CBC & Chemistry Diagram: 01/10/18 02:16 01/10/18 02:16 - ADDITIONAL ORDERS Additional order review: Laboratory Results 01/10/18 01/10/18 02:42 02:16 Sodium 143 Potassium 4.0 Chloride 111 H Carbon Dioxide 25 Anion Gap 7 L BUN 13 Creatinine 1.0 Creat Clearance w eGFR > 60 Random Glucose 99 Calcium 8.5 Total Bilirubin 0.1 L AST 25 ALT 21 Alkaline Phosphatase 94 Total Protein 6.3 L Albumin 3.2 L Urine Color Ltyellow Urine Appearance Slcloudy Urine pH 6.0 Ur Specific [place] 1.011 Urine Protein Negative Urine Glucose (UA) Negative Urine Ketones Negative Urine Blood Negative Urine Nitrite Negative Urine Bilirubin Negative Urine Urobilinogen Negative Ur Leukocyte Esterase Negative Urine HCG, Qual Negative 01/10/18 02:16 RBC 3.77 MCV 82.7 MCHC 34.4 RDW 17.4 H MPV 7.2 L Neutrophils % 66.5 Lymphocytes % 24.0 Monocytes % 5.4 Eosinophils % 3.3 Basophils % 0.8 - RADIOLOGY Radiology Studies Ordered: Category Date Time Status PELVIS(OTHER) US [US] Stat Ultrasound 01/10/18 04:28 Ordered - Medications Given in the ED: ED Medications Discontinued Medications Generic Name Dose Route Start Last Admin Trade Name Freq PRN Reason Stop Dose Admin Ketorolac Tromethamine 30 mg 01/10/18 03:43 01/10/18 04:15 Toradol Injection - IVPUSH 01/10/18 03:44 30 mg ONCE ONE Administration <Kendra Davis - Last Filed: 01/10/18 04:42> - LABORATORY CBC & Chemistry Diagram: 01/10/18 02:16 01/10/18 02:16 - RADIOLOGY Radiograph Interpretation: 01/10/18 04:21 CT abdomen and pelvis with IV contrast: Uterine wall mass likely reflects a fibroid US abd: neg torsion fibroid uterus <Jany Cisneros - Last Filed: 01/10/18 06:20> Medical Decision Making - Medical Decision Making 01/10/18 04:42 Patient Name: MOMO LIEBERMAN THIS IS A PRELIMINARY REPORT FROM [facility] DATE OF SERVICE: 2018-01-10 03:42:09 IMAGES: 499 EXAM: CT ABDOMEN \T\ PELVIS CT WITH CONTR HISTORY: Lower abdominal pain COMPARISON: None. [address] [facility] [address] [place] [address] Phone: [phone] ([phone]) Fax: Email: [email or web address] Patient Information: : 1980 Order Type: Preliminary Name: MIO BARR Sex: F Study Description: CT ABDOMEN AND PELVIS Modality: CT Location: [facility] Referring Physician: MAXINE LYONS Stomach: Normal Small bowel: Normal Large bowel: Normal Appendix: Normal Adrenals:Normal Kidneys: Normal Vascular: Normal Lymphatic: Normal Peritoneal: No free peritoneal air or fluid Pelvis: Uterus: There is a 4.0 x 4.2 x 3.3 cm peripherally enhancing low attenuation uterine wall mass Rectum: Normal Bladder: Normal The inferior thorax: Normal General: Skeletal: Normal Abdominal wall: Normal IMPRESSION: Uterine wall mass likely reflects a fibroid. Correlation with history and pelvic exam is recommended THIS DOCUMENT HAS BEEN ELECTRONICALLY SIGNED <SusanKendra - Last Filed: 01/10/18 04:42> *DC/Admit/Observation/Transfer <DavisKendra - Last Filed: 01/10/18 04:42> - Discharge Dispostion Decision to Admit order: No <Iram Cisnerosui - Last Filed: 01/10/18 06:20> Diagnosis at time of Disposition: Uterine mass - Discharge Dispostion Condition at time of disposition: Stable - Referrals Referrals: Annia Cordon [Primary Care Provider] - Michael Saleem MD [Staff Physician] - - Patient Instructions Printed Discharge Instructions: DI for Uterine Fibroids Additional Instructions: It is important that you follow-up with your manager data center Tylenol alternating with Motrin every 6 hours as needed for pain Return back to the ER for severe/persistent or worsening symptoms - Post Discharge Activity
[2018-01-10 02:25] VITALS: BMI 30.9
[2018-01-10 02:30] LABS: BASO % 0.8 % (0-2.0); EOS % 3.3 % (0-4.5); HEMATOCRIT 31.2 % (32.4-45.2); HEMOGLOBIN 10.7 GM/dL (10.7-15.3); MCH 28.5 pg (25.7-33.7); MCHC 34.4 g/dl (32.0-36.0); MEAN CELL VOLUME 82.7 fl (80-96); MEAN PLT VOLUME 7.2 fl (7.5-11.1); MONO % 5.4 % (3.8-10.2); NEUT % 66.5 % (42.8-82.8); PLATELET COUNT 304 K/MM3 (134-434); RBC 3.77 M/mm3 (3.60-5.2); RDW 17.4 % (11.6-15.6)
[2018-01-10 02:51] LABS: URINE APPEARANCE SLCLOUDY; URINE BILIRUBIN NEGATIVE (<2.0 mg/dL); URINE COLOR LTYELLOW; URINE GLUCOSE (UA) NEGATIVE (NEGATIVE); URINE KETONE NEGATIVE (NEGATIVE); URINE LEUK ESTERASE NEGATIVE (NEGATIVE); URINE NITRITE NEGATIVE (NEGATIVE); URINE PROTEIN NEGATIVE (NEGATIVE); URINE UROBILINOGEN NEGATIVE mg/dL (0.2-1.0)
[2018-01-10 02:58] LABS: ALBUMIN 3.2 g/dl (3.4-5.0); ALK PHOS 94 U/L (45-117); ANION GAP 7 MMOL/L (8-16); BILIRUBIN,TOTAL 0.1 mg/dL (0.2-1); BLOOD UREA NITROGEN 13 mg/dL (7-18); CALCIUM 8.5 mg/dL (8.5-10.1); CHLORIDE 111 mmol/L (98-107); CO2 25 mmol/L (21-32); GLUCOSE,RANDOM 99 mg/dL (74-106); SGOT/AST 25 U/L (15-37); SGPT/ALT 21 U/L (13-61); SODIUM 143 mmol/L (136-145); TOT PROT 6.3 g/dl (6.4-8.2)
[2018-01-10 03:24] LABS: HCG,QUALITATIVE URINE Negative
[2018-01-10] MEDS ORDERED: KETOROLAC TROMETHAMINE 30 MG/1 ML VIAL IVPUSH ONE (03:43)
[2018-01-10] MEDS ORDERED: KETOROLAC TROMETHAMINE 30 MG/1 ML VIAL ONE (03:47)
[2018-01-10] MEDS ORDERED: morphine CARPU-JECT 2 MG/1 ML DISP.SYRIN IVPUSH ONE (04:19)
[2018-01-10] MEDS ORDERED: ONDANSETRON 4 MG/2 ML VIAL IVPUSH ONE (04:20)
[2018-01-10] MEDS ORDERED: MORPHINE SULFATE 2 MG/ML VIAL ONE (04:47)
[2018-01-10 05:03] VITALS: BP 120/73; PULSE 79; TEMP 97.4
== END 2018-01-10 06:31 | disposition home or self-care (01) ==
LOC: JER 02:05
PROC: 3E033NZ Introduction of Analgesics, Hypnotics, Sedatives into Peripheral Vein, Percutaneous Approach (ICD-10-PCS; principal; 2018-01-10)
PROC: 3E0333Z Introduction of Anti-inflammatory into Peripheral Vein, Percutaneous Approach (ICD-10-PCS; 2018-01-10)
DX: N85.9 Noninflammatory disorder of uterus, unspecified (principal)
CPT/HCPCS: 36415; 74177-TC; 76830-TC; 76856-TC; 80053; 81003; 84703; 85025; 96374; 96375; 99284-25

== ENCOUNTER 2020-08-02 20:30 | Emergency (ER) | payer OTHER ==
[2020-08-02 20:39] VITALS: BMI 36.6
[2020-08-02] MEDS ORDERED: predniSONE 20 MG TABLET (UD) PO ONE (21:00)
[2020-08-02] MEDS ORDERED: predniSONE 20 MG TABLET (UD) ONE (21:06)
[2020-08-02 21:12] VITALS: BP 120/80; PULSE 88; TEMP 98
== END 2020-08-02 21:36 | disposition home or self-care (01) ==
LOC: JER 20:30
DX: G51.0 Bell's palsy (principal)
CPT/HCPCS: 99283-25

== ENCOUNTER 2020-12-25 12:13 | Emergency (ER) | payer OTHER ==
[2020-12-25 12:44] VITALS: BP 124/86; TEMP 97.8; BMI 35.2
[2020-12-25 13:20] VITALS: PULSE 78
[2020-12-25 13:42] LABS: HCG,QUALITATIVE URINE Negative
[2020-12-25 13:47] LABS: EPI CELLS 25 /uL (0-25.1); HYALINE CASTS 0 /uL (0-3.1); PH,URINE 5.5 (5.0-8.0); URINE APPEARANCE CLEAR; URINE BACTERIA 478 /uL (0-1359); URINE BILIRUBIN NEGATIVE (NEGATIVE); URINE COLOR YELLOW; URINE GLUCOSE (UA) NEGATIVE (NEGATIVE); URINE KETONE NEGATIVE (NEGATIVE); URINE LEUK ESTERASE 1+ (NEGATIVE); URINE NITRITE NEGATIVE (NEGATIVE); URINE PROTEIN NEGATIVE (NEGATIVE); URINE RBC 6 /uL (0-23.9); URINE UROBILINOGEN 0.2 mg/dL (0.2-1.0); URINE WBC 39 /uL (0-25.8)
== END 2020-12-25 14:41 | disposition home or self-care (01) ==
LOC: JERFT 12:13 → JER 12:13 → JERFT 14:41
DX: R30.0 Dysuria (principal)
CPT/HCPCS: 81003; 84703; 87086; 99283-25

== ENCOUNTER 2020-12-26 23:45 | Emergency (ER) | payer OTHER ==
[2020-12-27 00:06] VITALS: TEMP 97.7; BMI 35.2
[2020-12-27] MEDS ORDERED: ONDANSETRON 4 MG/2 ML VIAL IVPUSH ONE (00:14)
[2020-12-27] MEDS ORDERED: KETOROLAC TROMETHAMINE 30 MG/1 ML VIAL IVPUSH ONE (00:14)
[2020-12-27] MEDS ORDERED: SODIUM CHLORIDE 0.9% 500 ML INFUS.BAG IV ONE (00:14)
[2020-12-27] MEDS ORDERED: DEXAMETHASONE SOD PHOSPHATE 10 MG/1 ML VIAL IVPUSH ONE (00:15)
[2020-12-27] MEDS ORDERED: DEXAMETHASONE SOD PHOSPHATE 10 MG/1 ML VIAL ONE (00:27)
[2020-12-27] MEDS ORDERED: KETOROLAC TROMETHAMINE 30 MG/1 ML VIAL ONE (00:28)
[2020-12-27] MEDS ORDERED: ONDANSETRON 4 MG/2 ML VIAL ONE (00:28)
[2020-12-27 00:55] LABS: BASO % 1.1 % (0-2.0); EOS % 4.9 % (0-4.5); HEMATOCRIT 38.4 % (32.4-45.2); HEMOGLOBIN 12.7 GM/dL (10.7-15.3); LYMPH % 37.6 % (8-40); MCH 26.7 pg (25.7-33.7); MCHC 33.1 g/dl (32.0-36.0); MEAN CELL VOLUME 80.6 fl (80-96); MEAN PLT VOLUME 7.4 fl (7.5-11.1); MONO % 7.1 % (3.8-10.2); NEUT % 49.3 % (42.8-82.8); PLATELET COUNT 326 10^3/uL (134-434); RBC 4.77 M/mm3 (3.60-5.2); RDW 19.5 % (11.6-15.6); WHITE BLOOD COUNT 8.3 K/mm3 (4.0-10.0)
[2020-12-27 01:15] LABS: CHLORIDE 110 mmol/L (98-107); SODIUM 139 mmol/L (136-145)
[2020-12-27 01:19] LABS: CALCIUM 8.9 mg/dL (8.5-10.1)
[2020-12-27 01:20] LABS: ALBUMIN 3.4 g/dl (3.4-5.0); ANION GAP 4 MMOL/L (8-16); BLOOD UREA NITROGEN 10.5 mg/dL (7-18); CO2 25 mmol/L (21-32); GLUCOSE,RANDOM 91 mg/dL (74-106)
[2020-12-27 01:23] LABS: SGOT/AST 15 U/L (15-37); SGPT/ALT 20 U/L (13-61)
[2020-12-27 01:24] LABS: BILIRUBIN,TOTAL 0.2 mg/dL (0.2-1); TOT PROT 6.8 g/dl (6.4-8.2)
[2020-12-27 01:26] LABS: ALK PHOS 99 U/L (45-117)
[2020-12-27] MEDS ORDERED: morphine CARPU-JECT 4 MG/1 ML DISP.SYRIN IVPUSH ONE ×2 (01:42→02:59)
[2020-12-27] MEDS ORDERED: CEFTRIAXONE 1,000 MG in DEXTROSE 5%-WATER - 50 ML IVPB ONE (01:43)
[2020-12-27] MEDS ORDERED: morphine SULFATE 4 MG/ML VIAL ONE ×2 (01:57→03:07)
[2020-12-27] MEDS ORDERED: LORazepam 2 MG/ML SDV VIAL IVPUSH ONE (03:39)
[2020-12-27] MEDS ORDERED: LORazepam 2 MG/ML SDV VIAL ONE (03:42)
[2020-12-27 04:46] VITALS: BP 117/71; PULSE 75
== END 2020-12-27 04:46 | disposition home or self-care (01) ==
LOC: JER 23:45
PROC: 3E033GC Introduction of Other Therapeutic Substance into Peripheral Vein, Percutaneous Approach (ICD-10-PCS; principal; 2020-12-26)
DX: T78.40XA Allergy, unspecified, initial encounter (principal); R10.32 Left lower quadrant pain
CPT/HCPCS: 36415; 74176-TC; 80053; 84484; 84703; 85025; 93005; 93010; 99285-25; J1100